=== PATIENT | female | born 1965 | race Caucasian/White ===

== ENCOUNTER 2025-05-07 17:01 | Emergency (ER) | payer OTHER, SELFPAY ==
[2025-05-07 17:44] VITALS: BP 160/100; PULSE 74; TEMP 37; O2SAT 97; BMI 27.4
--- NOTE | 2025-05-07 18:04 | XR_ITS ---
[address] [address] Patient Name: DOM CHAPMAN MRN: [id number] date: 1965 Sex: F Assigned Patient Location: ER Current Patient Location: ED.MAIN Accession/Order Number: [id number] Exam Date: 05/07/2025 18:30 Report Date: 05/07/2025 18:43 At the request of: TRACY SANDERSON Procedure: XR knee RT 4V History: Fell. Right hip injury. Right leg pain 2 views right hip Adequate alignment without acute displaced fracture. 4 views right knee No acute displaced fracture. No joint effusion. Adequate alignment. Extensive degeneration XR/XR hip RT min 2V IMPRESSION: No acute displaced fracture of the right hip or right knee Impression dictated by: Carlos Santiago M.D. 05/07/2025 6:43 PM Dictation Location: [place] [address] Electronically authenticated by: [id number] Y Date: 05/07/2025 18:43
--- NOTE | 2025-05-07 18:04 | XR_ITS ---
[address] [address] Patient Name: DOM CHAPMAN MRN: [id number] date: 1965 Sex: F Assigned Patient Location: ER Current Patient Location: ED.MAIN Accession/Order Number: [id number] Exam Date: 05/07/2025 18:30 Report Date: 05/07/2025 18:43 At the request of: TRACY SANDERSON Procedure: XR knee RT 4V History: Fell. Right hip injury. Right leg pain 2 views right hip Adequate alignment without acute displaced fracture. 4 views right knee No acute displaced fracture. No joint effusion. Adequate alignment. Extensive degeneration XR/XR knee RT 4V IMPRESSION: No acute displaced fracture of the right hip or right knee Impression dictated by: Carlos Santiago M.D. 05/07/2025 6:43 PM Dictation Location: [place] [address] Electronically authenticated by: [id number] Y Date: 05/07/2025 18:43
[2025-05-07] MEDS: KETOROLAC TROMETHAMINE 10 MG TABLET PO (18:14)
--- NOTE | 2025-05-07 19:23 | ED.LOWEXI1 ---
HPI HPI - Extremity Injury (Lower) General Chief Complaint: Extremity Injury, Lower Stated Complaint: FELL ON RIGHT LEG SATURDAY NIGHT/SWOLLEN Time Seen by Provider: 05/07/25 17:52 History of Present Illness HPI Narrative: Patient presents to the ER with a complaint of a fall about 3 days ago. She states she fell and struck her right knee and fell on her right hip she did not have any other injury. She states it started to get better but she went to work and walked on it all day and she felt like the swelling and pain got worse again. She has been using some ice and elevation on the area. She has not take anything else for her discomfort. Patient denies any head injury or any other injury at this time. MD complaint: Reports hip injury and knee injury Onset (ago): day(s) Related Data Previous Rx's ?Medication ?Instructions ?Recorded ketorolac 10 mg tablet 10 mg PO Q8H PRN pain #10 tabs 05/07/25 Allergies Allergy/AdvReac Type Severity Reaction Status Date / Time No Known Drug Allergies Allergy Verified 05/07/25 17:51 Opioid HPI Opioid Management Most Recent Pain and Opioid Data: Last Pain Scale 10 Today, 17:44 PFSH PFSH Social History Little interest or pleasure in doing things: not at all Feeling down, depressed, or hopeless: not at all Exam Constitutional Vital Signs, click to edit/add: Last Vital Signs Temp 98.6 F 05/07/25 17:44 Pulse 74 05/07/25 17:44 Resp 16 05/07/25 17:44 BP 160/100 H 05/07/25 17:44 Pulse Ox 97 05/07/25 17:44 O2 Del Method Room Air 05/07/25 17:44 Documenting provider has reviewed patient's vital signs: yes Common normals: no apparent distress, average body habitus, oriented x3, no limitations, healthy appearing, alert and well nourished [facility] Common normals: normocephalic, head/scalp atraumatic, hearing grossly normal bilaterally, external ears normal, EACs normal, TMs normal bilaterally, external nose normal, nasal mucous membranes and turbinates normal, moist oral mucous membranes and oropharynx normal Eye Common normals: PERRL, EOMs intact bilaterally, conjunctivae normal, no scleral icterus and no papilledema Neck & C-Spine Common normals: full ROM, no lymphadenopathy, supple, no meningeal signs and no JVD Chest Common normals: inspection of chest normal and palpation of chest normal Respiratory Common normals: normal respiratory effort, no retractions, no use of accessory muscles and clear to auscultation bilaterally Cardio Common normals: regular rate, regular rhythm, S1 normal heart sound, S2 normal heart sound and no murmurs Peripheral pulses: pulses 2+ throughout GI Common normals: Normal to inspection, nondistended, normoactive bowel sounds present Extremity General: normal exam except as noted Right lower extremity: hip joint Right hip: palpation Other: Pain to lateral hip right without contusion or ROM deficient. no deformity; pain in the right knee. no laxity in joints. Neuro Cristin Coma Scale: document GCS findings Common normals: oriented x3 and CN's II-XII intact bilaterally Psych Common normals: mental status grossly normal Course Vital Signs Vital signs: Vital Signs Temperature 98.6 F 05/07/25 17:44 Pulse Rate 74 05/07/25 17:44 Respiratory Rate 16 05/07/25 17:44 Blood Pressure 160/100 H 05/07/25 17:44 Pulse Oximetry 97 05/07/25 17:44 Oxygen Delivery Method Room Air 05/07/25 17:44 Temperature 98.6 F 05/07/25 17:44 Pulse Rate 74 05/07/25 17:44 Respiratory Rate 16 05/07/25 17:44 Blood Pressure 160/100 H 05/07/25 17:44 Pulse Oximetry 97 05/07/25 17:44 Oxygen Delivery Method Room Air 05/07/25 17:44 MDM - Extremity Injury (Lower) MDM Narrative Medical decision making narrative: Patient presents to the ER with a complaint of a fall about 3 days ago. She states she fell and struck her right knee and fell on her right hip she did not have any other injury. She states it started to get better but she went to work and walked on it all day and she felt like the swelling and pain got worse again. She has been using some ice and elevation on the area. She has not take anything else for her discomfort. Patient denies any head injury or any other injury at this time. Patient has tenderness and swelling in the anterior portion of the right knee. She does not have any gross deformity or abrasions or contusions. She also tenderness on the right hip but is able to move through range of motion. She does not have any laxity of ligaments. Good cap refill distally. Good pulses distally. Patient is alert and oriented cranial nerves grossly intact GCS of 15 no tenderness in the spine. No chest wall tenderness heart lung sounds are unremarkable. X-rays were negative of the right hip and right knee. I discussed the patient this is likely a strain of her knee and a contusion of the right hip secondary to a fall. She was encouraged to rest, ice, compression, elevate. I did give her an Elijah wrap. She was given anti-inflammatories when she was here as well. She was encouraged to rest the area and possibly stay off of work for a couple days if she was able. Patient was given an Elijah wrap. She understands all discharge instructions and will follow-up as discussed. Patient was encouraged to return with worsening concerning symptoms. Medical Records Attestation: I reviewed the patient's medical records. Imaging Data xray knee: Radiologist's impression: ITS Impressions Hip X-Ray 05/07/25 18:04 IMPRESSION: No acute displaced fracture of the right hip or right knee Impression dictated by: Carlos Santiago M.D. 05/07/2025 6:43 PM Dictation Location: [employer] Electronically authenticated by: [id number] Y Date: 05/07/2025 18:43 Knee X-Ray 05/07/25 18:04 IMPRESSION: No acute displaced fracture of the right hip or right knee Impression dictated by: Carlos Santiago M.D. 05/07/2025 6:43 PM Dictation Location: [employer] Electronically authenticated by: [id number] Y Date: 05/07/2025 18:43 Discharge Plan Discharge Chief Complaint: Extremity Injury, Lower Clinical Impression: Knee sprain Qualifiers: Encounter type: initial encounter Involved ligament of knee: unspecified ligament Laterality: right Qualified Code(s): S83.91XA - Sprain of unspecified site of right knee, initial encounter Contusion of hip, right Qualifiers: Encounter type: initial encounter Qualified Code(s): S70.01XA - Contusion of right hip, initial encounter Fall Qualifiers: Encounter type: initial encounter Qualified Code(s): W19.XXXA - Unspecified fall, initial encounter Patient Disposition: Home, Self-Care Time of Disposition Decision: 19:24 Condition: Good Prescriptions / Home Meds: New ketorolac 10 mg tablet 10 mg PO Q8H PRN (Reason: pain) Qty: 10 0RF Print Language: Argentine Instructions: Knee Sprain (ED), Contusion in Adults (ED) Referrals: Physician,Non-Staff, MD [Primary Care Provider] - 1 week Referral Note: Follow up with your PCP in 4-5 days if pain persists. Discharge Date/Time: 05/07/25 19:36
== END 2025-05-07 19:36 | disposition home or self-care (01) ==
PROVIDERS: Emergency Provider Student in an Organized Health Care Education/Training Program
DX: S70.01XA Contusion of right hip, initial encounter (principal); S83.91XA Sprain of unspecified site of right knee, initial encounter; W19.XXXA Unspecified fall, initial encounter
CPT/HCPCS: 73502; 73564; 99284